=== PATIENT | male | born 1965 | race Caucasian/White ===

== ENCOUNTER 2016-07-22 15:31 | Observation (INO) | payer OTHER ==
[~2016-07-22] VITALS: Ht 170.2 cm; Wt 151.0 kg
[2016-07-22 15:35] VITALS: BP 125/59; PULSE 73; RESP 20; O2SAT 95
[2016-07-22 15:57] VITALS: BP 125/59; PULSE 73; RESP 20; TEMP 98.9; O2SAT 95
[2016-07-22] MEDS ORDERED: SODIUM CHLORIDE 0.9% FLUSH 10 ML FLUSH IVF PRN (16:00)
--- NOTE | 2016-07-22 16:10 | PD ---
HPI Chief Complaint: Respiratory Distress Time Seen by Provider: 15:51 Travel History International Travel<30 days: No Contact w/Intl Traveler<30days: No Traveled to known affect area: No History of Present Illness HPI The patient is a 50-year-old male who presents to the emergency department via EMS for multiple complaints. The patient states he is currently traveling from [place], [place], to [place] to go to the [employer]. The patient states when he got out of the car he felt like his legs were "rubbery ", he had some numbness and tingling to the left upper extremity that affected the whole hand, now only affects the fifth digit, and had mild shortness of breath. The patient does note a history of 2 previous CVAs and previous stent placement secondary to CAD. Patient also has a history of COPD and CHF. The patient states his breathing has significantly improved, the numbness and tingling to the left upper extremity has resolved, and his legs are feeling slightly stronger. The patient is currently on aspirin as well as Effient. The patient denies any known history of DVT or pulmonary embolism. The patient does have a history of 2 previous strokes with no subsequent deficits. He states one stroke was on the left thigh, he was partially blind for about 15 months and then it resolved. Patient states his symptoms today started after traveling, noted both legs felt weak. He denies any current chest pain, states his shortness of breath has resolved, denies any nausea, vomiting, diarrhea, or abdominal pain. PFSH Past Medical History Narrative Medical Diabetes, CVA, CAD, [place], hypertension, COPD, CHF Past Surgical History Narrative Surgical Angioplasty with stent placement, stent in right iliac arteries Social History Tobacco Use: No Allergies-Medications (Allergen,Severity, Reaction): Coded Allergies: No Known Allergies (Unverified , 07/22/16) Reported Meds & Prescriptions Reported Meds & Active Scripts Active Reported Effient (Prasugrel) 10 Mg Tab 10 Mg PO DAILY Glimepiride 4 Mg Tab 4 Mg PO BIDAC B12 (Cyanocobalamin) 1,000 Mcg Tab 5,000 Mcg PO DAILY Furosemide 20 Mg Tab 20 Mg PO BID Hydralazine (Hydralazine HCl) 10 Mg Tab 10 Mg PO BID Take with a meal Carvedilol 25 Mg Tab 25 Mg PO BID Gabapentin 100 Mg Cap 200 Mg PO BID Zocor (Simvastatin) 20 Mg Tab 20 Mg PO HS Folate (Folic Acid) 1 Mg Tab 1 Mg PO DAILY Loratadine 10 Mg Tab 10 Mg PO DAILY Lansoprazole 15 Mg Capdr 15 Mg PO DAILY D3 (Cholecalciferol) 2,000 Unit Tab 2,000 Tab PO DAILY Aspirin 81 Mg Chew 81 Mg CHEW DAILY Fish Oil ([place]-3 Fatty Acids) 1,000 Mg Cap 2,000 Mg PO DAILY Multivitamin Men (Multiple Vitamins W/ Minerals) 1 Tab Tab 1 Tab PO DAILY Ventolin Hfa 18 GM Inh (Albuterol Sulfate) 90 Mcg/Act Aer 1 Puff INH Q4H PRN Anoro Ellipta Inh (Umeclidinium/Vilanterol) 62.5-25 Mcg/Act Aero 1 Puff INH DAILY Levemir Flextouch Pen Inj (Insulin Detemir) 300 unit/3 ML Pen 50 Units SQ HS Humalog Mix 75-25 Inj (Insulin Lispro Protam/Lispro Human) 1,000 Unit/10 Ml Susp 26 Units SQ AC DINNER Humalog Mix 75-25 Inj (Insulin Lispro Protam/Lispro Human) 1,000 Unit/10 Ml Susp 40 Units SQ AC BREAKFAST Ligwjnhqwh-Vdkwnthuifupo-Omiroyax-Codeine 26-729-87-30 Mg Cap 1-2 Cap PO Q4H PRN Do not exceed 6 capsules/day. Review of Systems Except as stated in HPI: all other systems reviewed are Neg General / Constitutional: No: Fever Eyes: No: Blurred Vision HENT: No: Headaches, Lightheadedness Cardiovascular: No: Chest Pain or Discomfort Respiratory: Positive: Shortness of Breath (has shortness of breath earlier which has resolved) Gastrointestinal: No: Nausea, Vomiting, Abdominal Pain Genitourinary: No: Dysuria Musculoskeletal: Positive: Weakness Neurologic: Positive: Paresthesia, Other (history of lower extremity neuropathy ) Physical Exam Narrative GENERAL: Awake, alert, pleasant 50-year-old male who appears his stated age and is in no acute respiratory distress. SKIN: Focused skin assessment warm/dry. HEAD: Atraumatic. Normocephalic. EYES: Pupils equal and round. No scleral icterus. No injection or drainage. ENT: No nasal bleeding or discharge. Mucous membranes pink and moist. NECK: Trachea midline. No JVD. CARDIOVASCULAR: Regular rate and rhythm. No murmur appreciated. RESPIRATORY: No accessory muscle use. Clear to auscultation. Breath sounds equal bilaterally. GASTROINTESTINAL: Abdomen soft, obese, no rebound tenderness. MUSCULOSKELETAL: Chronic venous stasis changes lower extremities bilateral. Positive distal pulses. Strength of flexion extension the elbows is 5 out of 5 , flexion extension of the wrist is 5 out of 5, intrinsic and muscles are 5 out of 5 bilateral. Positive radial pulses. NEUROLOGICAL: Awake and alert. No obvious cranial nerve deficits. Motor grossly within normal limits. Normal speech. No drift of the upper or lower extremity. Sensation is symmetric on the arms, legs, and face bilaterally. NIHSS 0. PSYCHIATRIC: Appropriate mood and affect; insight and judgment normal. Data Data Last Documented VS Vital Signs Date Time Temp Pulse Resp B/P Pulse Ox O2 Delivery O2 Flow Rate FiO2 07/23/16 00:10 20 96 Nasal Cannula 2 07/22/16 21:59 74 175/73 07/22/16 15:57 98.9 Orders Complete Blood Count With Diff (07/22/16 15:51) Comprehensive Metabolic Panel (07/22/16 15:51) Act Partial Throm Time (Ptt) (07/22/16 15:51) Prothrombin Time / Inr (Pt) (07/22/16 15:51) Magnesium (Mg) (07/22/16 15:51) Ckmb (Isoenzyme) Profile (07/22/16 15:51) Troponin I (07/22/16 15:51) Iv Access Insert/Monitor (07/22/16 15:51) Electrocardiogram (07/22/16 15:51) Ecg Monitoring (07/22/16 15:51) Oximetry (07/22/16 15:51) Oxygen Administration (07/22/16 15:51) Chest, Single Ap (07/22/16 15:51) Sodium Chloride 0.9% Flush (Ns Flush) (07/22/16 16:00) Ct Brain W/O Iv Contrast(Rout) (07/22/16 ) Mri Brain W/O Contrast (07/22/16 ) CKMB (07/22/16 16:25) CKMB% (07/22/16 16:25) Lorazepam Inj (Ativan Inj) (07/22/16 20:15) Admit Order (Ed Use Only) (07/23/16 00:14) Consult Neurology (07/23/16 ) Labs Laboratory Tests Test 07/22/16 16:25 White Blood Count 9.7 TH/MM3 Red Blood Count 4.62 MIL/MM3 Hemoglobin 12.9 GM/DL Hematocrit 38.7 % Mean Corpuscular Volume 83.8 FL Mean Corpuscular Hemoglobin 28.0 PG Mean Corpuscular Hemoglobin 33.4 % Concent Red Cell Distribution Width 14.2 % Platelet Count 210 TH/MM3 Mean Platelet Volume 9.6 FL Neutrophils (%) (Auto) 67.2 % Lymphocytes (%) (Auto) 21.5 % Monocytes (%) (Auto) 9.0 % Eosinophils (%) (Auto) 1.5 % Basophils (%) (Auto) 0.8 % Neutrophils # (Auto) 6.5 TH/MM3 Lymphocytes # (Auto) 2.1 TH/MM3 Monocytes # (Auto) 0.9 TH/MM3 Eosinophils # (Auto) 0.1 TH/MM3 Basophils # (Auto) 0.1 TH/MM3 CBC Comment DIFF FINAL Differential Comment Prothrombin Time 9.9 SEC Prothromb Time International 0.9 RATIO Ratio Activated Partial 24.3 SEC Thromboplast Time Sodium Level 134 MEQ/L Potassium Level 5.1 MEQ/L Chloride Level 99 MEQ/L Carbon Dioxide Level 24.3 MEQ/L Anion Gap 11 MEQ/L Blood Urea Nitrogen 38 MG/DL Creatinine 2.28 MG/DL Estimat Glomerular Filtration 31 ML/MIN Rate Random Glucose 214 MG/DL Calcium Level 9.0 MG/DL Magnesium Level 2.2 MG/DL Total Bilirubin 0.4 MG/DL Aspartate Amino Transf 30 U/L (AST/SGOT) Alanine Aminotransferase 38 U/L (ALT/SGPT) Alkaline Phosphatase 84 U/L Total Creatine Kinase 172 U/L Creatine Kinase MB 5.5 NG/ML Troponin I LESS THAN 0.02 NG/ML Total Protein 7.2 GM/DL Albumin 3.4 GM/DL [facility] Medical Decision Making Medical Screen Exam Complete: Yes Emergency Medical Condition: Yes Medical Record Reviewed: Yes Interpretation(s) EKG reveals normal sinus rhythm with a rate of 75. Q wave noted in lead 3. Last Impressions Head CT 07/22/16 0000 Signed Impressions: Service Date/Time: Friday, July 22, 2016 17:15 - CONCLUSION: Focal small low attenuation area in the white matter of the right parietal lobe. The finding is nonspecific and could represent a small focus of edema or possible remote injury. Julio Cesar Hunter MD Laboratory Tests Test 07/22/16 16:25 White Blood Count 9.7 TH/MM3 Red Blood Count 4.62 MIL/MM3 Hemoglobin 12.9 GM/DL Hematocrit 38.7 % Mean Corpuscular Volume 83.8 FL Mean Corpuscular Hemoglobin 28.0 PG Mean Corpuscular Hemoglobin 33.4 % Concent Red Cell Distribution Width 14.2 % Platelet Count 210 TH/MM3 Mean Platelet Volume 9.6 FL Neutrophils (%) (Auto) 67.2 % Lymphocytes (%) (Auto) 21.5 % Monocytes (%) (Auto) 9.0 % Eosinophils (%) (Auto) 1.5 % Basophils (%) (Auto) 0.8 % Neutrophils # (Auto) 6.5 TH/MM3 Lymphocytes # (Auto) 2.1 TH/MM3 Monocytes # (Auto) 0.9 TH/MM3 Eosinophils # (Auto) 0.1 TH/MM3 Basophils # (Auto) 0.1 TH/MM3 CBC Comment DIFF FINAL Differential Comment Prothrombin Time 9.9 SEC Prothromb Time International 0.9 RATIO Ratio Activated Partial 24.3 SEC Thromboplast Time Sodium Level 134 MEQ/L Potassium Level 5.1 MEQ/L Chloride Level 99 MEQ/L Carbon Dioxide Level 24.3 MEQ/L Anion Gap 11 MEQ/L Blood Urea Nitrogen 38 MG/DL Creatinine 2.28 MG/DL Estimat Glomerular Filtration 31 ML/MIN Rate Random Glucose 214 MG/DL Calcium Level 9.0 MG/DL Magnesium Level 2.2 MG/DL Total Bilirubin 0.4 MG/DL Aspartate Amino Transf 30 U/L (AST/SGOT) Alanine Aminotransferase 38 U/L (ALT/SGPT) Alkaline Phosphatase 84 U/L Total Creatine Kinase 172 U/L Creatine Kinase MB 5.5 NG/ML Troponin I LESS THAN 0.02 NG/ML Total Protein 7.2 GM/DL Albumin 3.4 GM/DL Differential Diagnosis Differential diagnosis includes CVA, TIA, neuropathy, CHF exacerbation, COPD exacerbation, deconditioning, cardiomyopathy, hyponatremia, electrolyte abnormality. Narrative Course IV was established, labs are drawn and sent, and the patient was placed on cardiac telemetry monitoring and continuous pulse oximetry monitoring. EKG was ordered and interpreted. Chest x-ray was obtained. CT the brain was obtained. The patient has no acute focal deficits on examination, I do not believe this is an acute CVA/TIA. However, the patient's history, CT of the brain was obtained. CT of the brain reveals questionable old injury versus area of edema in the right parietal region, therefore, MRI was ordered to rule out CVA. No obvious hemorrhage, therefore, patient was administered aspirin. Patient's creatinine is mildly elevated at 2.28, no baseline or previous records. The patient was signed out to the oncoming physician at 7 PM with MRI results pending. If MRI is positive, patient will need admission, if negative, patient be discharged home. Diagnosis Primary Impression: Generalized weakness Additional Impression: Demyelinating changes in brain Condition: Stable Ildefonso Lara MD Jul 22, 2016 16:10
--- NOTE | 2016-07-22 16:35 | RADRPT ---
EXAM DATE/TIME: 07/22/2016 16:07 [facility] COMPARISON: No previous studies available for comparison. INDICATIONS : Shortness of breath and left arm numbness. MEDICAL HISTORY : Chronic obstructive pulmonary disease. Congestive heart failure. Diabetes mellitus type II. Hyper tension. SURGICAL HISTORY : Cardiac stents. ENCOUNTER: Initial ACUITY: 3 days PAIN SCORE: 0/10 LOCATION: Chest FINDINGS: Lungs are underaerated with minimal bibasilar parenchymal changes worse on the right than the left. H eart and pulmonary vascularity are normal. CONCLUSION: Minimal parenchymal changes right base. Satish Jesus MD FACR on July 22, 2016 at 16:29 Board Certified Radiologist. This report was verified electronically.
[2016-07-22 16:58] LABS: AUTOMATED NEUTROPHIL # 6.5 TH/MM3 (1.8-7.7); BASOPHIL # 0.1 TH/MM3 (0-0.2); BASOPHIL % 0.8 % (0.0-2.0); EOSINOPHIL # 0.1 TH/MM3 (0-0.4); EOSINOPHIL % 1.5 % (0.0-4.0); HEMATOCRIT 38.7 % (39.0-51.0); HEMO FLAGS DIFF FINAL; LYMPH % 21.5 % (9.0-44.0); LYMPHOCYTE # 2.1 TH/MM3 (1.0-4.8); MEAN CELL VOLUME 83.8 FL (80.0-100.0); MEAN CORPUSCULAR HGB CONC 33.4 % (32.0-36.0); NEUT % 67.2 % (16.0-70.0); PLATELET COUNT 210 TH/MM3 (150-450); RED BLOOD COUNT 4.62 MIL/MM3 (4.50-5.90); RED CELL DISTRIBUTION WIDTH 14.2 % (11.6-17.2); WHITE BLOOD COUNT 9.7 TH/MM3 (4.0-11.0)
[2016-07-22 17:13] LABS: APTT (PATIENT) 24.3 SEC (24.3-30.1); INTERNATIONAL NORMALIZED RATIO 0.9 RATIO; PROTHROMBIN TIME - PATIENT 9.9 SEC (9.8-11.6)
--- NOTE | 2016-07-22 17:22 | RADRPT ---
EXAM DATE/TIME: 07/22/2016 17:15 [facility] COMPARISON: No previous studies available for comparison. INDICATIONS : Generalized weakness. RADIATION DOSE: 44.46 CTDIvol (mGy) MEDICAL HISTORY : Cardiovascular disease. Diabetes mellitus type 2. SURGICAL HISTORY : None. ENCOUNTER: Initial ACUITY: 1 day PAIN SCALE: 0/10 LOCATION: cranial TECHNIQUE: Multiple contiguous axial images were obtained of the head. Using automated exposure control and adj ustment of the mA and/or kV according to patient size, radiation dose was kept as low as reasonably a chievable to obtain optimal diagnostic quality images. FINDINGS: CEREBRUM: The ventricles are normal for age. No evidence of midline shift, hemorrhage or acute infarction. On image #20 there is a 1 cm focal area of decreased attenuation in the deep white matter of the right parietal lobe. No extra-axial fluid collections are seen. POSTERIOR FOSSA: The cerebellum and brainstem are intact. The 4th ventricle is midline. The cerebellopontine angle i s unremarkable. EXTRACRANIAL: The visualized portion of the orbits is intact. SKULL: The calvaria is intact. No evidence of skull fracture. CONCLUSION: Focal small low attenuation area in the white matter of the right parietal lobe. The finding is nonspecific and could represent a small focus of edema or possible remote injury. Julio Cesar Hunter MD on July 22, 2016 at 17:18 Board Certified Radiologist. This report was verified electronically.
[2016-07-22 17:52] LABS: ALKALINE PHOSPHATASE 84 U/L (45-117); ALT (GPT) 38 U/L (12-78); ANION GAP 11 MEQ/L (5-15); AST (GOT) 30 U/L (15-37); BICARBONATE 24.3 MEQ/L (21.0-32.0); BLOOD UREA NITROGEN 38 MG/DL (7-18); CHLORIDE 99 MEQ/L (98-107); CREATINE KINASE 172 U/L (39-308); GLOMERULAR FILTRATION RATE 31 ML/MIN (>89); MAGNESIUM 2.2 MG/DL (1.5-2.5); POTASSIUM 5.1 MEQ/L (3.5-5.1); SODIUM (NA) 134 MEQ/L (136-145); TOTAL BILIRUBIN ADULT 0.4 MG/DL (0.2-1.0)
[2016-07-22 18:00] VITALS: BP 127/64; PULSE 74; RESP 20; O2SAT 98
[2016-07-22 18:05] LABS: CKMB 5.5 NG/ML (0.5-3.6)
[2016-07-22 19:00] VITALS: BP 128/76; PULSE 72; RESP 20; O2SAT 97
--- NOTE | 2016-07-22 20:07 | PD ---
Physical Exam Narrative Received sign out from previous team to follow up on MRI brain. I was informed by nurse that pt was brought by from MRI because he was claustrophobic. Pt states that he gets like that in tight spaces and needed medication so ativan 1mg IV given. MRI brain showed multiple small areas of signal abnormality likely representing demyelination. Discussed results with Dr. Jean Baptiste and he recommends inpatient workup and consult neurology and he will see him tomorrow. Discussed with Dr. Hutchins and accepted to her service. Data Data Last Documented VS Vital Signs Date Time Temp Pulse Resp B/P Pulse Ox O2 Delivery O2 Flow Rate FiO2 07/23/16 00:10 20 96 Nasal Cannula 2 07/22/16 21:59 74 175/73 07/22/16 15:57 98.9 Orders Complete Blood Count With Diff (07/22/16 15:51) Comprehensive Metabolic Panel (07/22/16 15:51) Act Partial Throm Time (Ptt) (07/22/16 15:51) Prothrombin Time / Inr (Pt) (07/22/16 15:51) Magnesium (Mg) (07/22/16 15:51) Ckmb (Isoenzyme) Profile (07/22/16 15:51) Troponin I (07/22/16 15:51) Iv Access Insert/Monitor (07/22/16 15:51) Electrocardiogram (07/22/16 15:51) Ecg Monitoring (07/22/16 15:51) Oximetry (07/22/16 15:51) Oxygen Administration (07/22/16 15:51) Chest, Single Ap (07/22/16 15:51) Sodium Chloride 0.9% Flush (Ns Flush) (07/22/16 16:00) Ct Brain W/O Iv Contrast(Rout) (07/22/16 ) Mri Brain W/O Contrast (07/22/16 ) CKMB (07/22/16 16:25) CKMB% (07/22/16 16:25) Lorazepam Inj (Ativan Inj) (07/22/16 20:15) Admit Order (Ed Use Only) (07/23/16 00:14) Consult Neurology (07/23/16 ) Labs Laboratory Tests Test 07/22/16 16:25 White Blood Count 9.7 TH/MM3 Red Blood Count 4.62 MIL/MM3 Hemoglobin 12.9 GM/DL Hematocrit 38.7 % Mean Corpuscular Volume 83.8 FL Mean Corpuscular Hemoglobin 28.0 PG Mean Corpuscular Hemoglobin 33.4 % Concent Red Cell Distribution Width 14.2 % Platelet Count 210 TH/MM3 Mean Platelet Volume 9.6 FL Neutrophils (%) (Auto) 67.2 % Lymphocytes (%) (Auto) 21.5 % Monocytes (%) (Auto) 9.0 % Eosinophils (%) (Auto) 1.5 % Basophils (%) (Auto) 0.8 % Neutrophils # (Auto) 6.5 TH/MM3 Lymphocytes # (Auto) 2.1 TH/MM3 Monocytes # (Auto) 0.9 TH/MM3 Eosinophils # (Auto) 0.1 TH/MM3 Basophils # (Auto) 0.1 TH/MM3 CBC Comment DIFF FINAL Differential Comment Prothrombin Time 9.9 SEC Prothromb Time International 0.9 RATIO Ratio Activated Partial 24.3 SEC Thromboplast Time Sodium Level 134 MEQ/L Potassium Level 5.1 MEQ/L Chloride Level 99 MEQ/L Carbon Dioxide Level 24.3 MEQ/L Anion Gap 11 MEQ/L Blood Urea Nitrogen 38 MG/DL Creatinine 2.28 MG/DL Estimat Glomerular Filtration 31 ML/MIN Rate Random Glucose 214 MG/DL Calcium Level 9.0 MG/DL Magnesium Level 2.2 MG/DL Total Bilirubin 0.4 MG/DL Aspartate Amino Transf 30 U/L (AST/SGOT) Alanine Aminotransferase 38 U/L (ALT/SGPT) Alkaline Phosphatase 84 U/L Total Creatine Kinase 172 U/L Creatine Kinase MB 5.5 NG/ML Troponin I LESS THAN 0.02 NG/ML Total Protein 7.2 GM/DL Albumin 3.4 GM/DL MDM Supervised Visit with [place]: No Diagnosis Primary Impression: Demyelinating changes in brain Admitting Information Admitting Physician Requests: Observation Condition: Stable Fadumo Lpoez Jul 22, 2016 20:07
[2016-07-22] MEDS ORDERED: LORazepam 2 MG/ML VIAL IV PUSH ONE (20:15)
[2016-07-22 21:59] VITALS: BP 175/73; PULSE 74; RESP 18; O2SAT 98
--- NOTE | 2016-07-22 22:22 | RADRPT ---
EXAM DATE/TIME: 07/22/2016 20:48 [facility] COMPARISON: CT BRAIN W/O CONTRAST, July 22, 2016, 17:15. INDICATIONS : CVA. MEDICAL HISTORY : Hypertension. Hypercholesterolemia. Chronic obstructive pulmonary disease. Diabetes. SURGICAL HISTORY : Laser eye surgery. ENCOUNTER: Subsequent ACUITY: 1 day PAIN SCORE: 3/10 LOCATION: Cranial TECHNIQUE: Multiplanar, multisequence MRI of the brain was performed without contrast. FINDINGS: CEREBRUM: The ventricles are normal for age. No evidence of midline shift, mass lesion, hemorrha ge or acute infarction. No extraaxial fluid collections are seen. The pituitary gland and suprasell ar cistern are normal in configuration. WHITE MATTER: There are a few scattered punctate areas of signal abnormality in the cerebral white matter. There is a prominent area of signal abnormality seen in the right paraventricular whit e matter at the medial frontoparietal region measuring 1.3 x 0.9 cm. This corresponds to the area of low density seen on the CT examination. POSTERIOR FOSSA: The cerebellum and brainstem are intact. The 4th ventricle is midline. The cere bellopontine angle is unremarkable. The cerebellar tonsils are normal in position. DIFFUSION IMAGING: No focal areas of restricted diffusion are seen. No evidence of acute infarct ion. EXTRACRANIAL: The visualized portions of the orbits and paranasal sinuses are unremarkable. CONCLUSION: Multiple small areas of signal abnormality in the superior white matter likely repres enting focal areas of demyelination. There is a larger area seen in the medial right frontoparietal region. This could represent either a larger area of demyelination or an old lacunar infarct. The c ause of the small areas of demyelination are not known. Small vessel ischemic change versus underlyin g demyelinating conditions could have this appearance. Arjun Castellon MD on July 22, 2016 at 22:10 Board Certified Radiologist. This report was verified electronically.
[2016-07-23] VITALS (8 sets, daily range): BP systolic 156–187; BP diastolic 65–89; PULSE 70–74; RESP 20; TEMP 97.6–98.2; O2SAT 95–100
[2016-07-23] MEDS ORDERED: SODIUM CHLOR 0.9% 1000 ML INJ 1,000 ML IV SCH (00:24)
[2016-07-23] MEDS ORDERED: ONDANSETRON HCL 4 MG/2 ML VIAL IVP PRN (00:30)
[2016-07-23] MEDS ORDERED: SODIUM CHLORIDE 0.9% FLUSH 10 ML FLUSH IV FLUSH PRN (00:30)
[2016-07-23] MEDS ORDERED: MORPHINE SULFATE 4 MG/ML INJ IV PRN (00:30)
[2016-07-23] MEDS ORDERED: ACETAMINOPHEN 325 MG TAB PO PRN (00:30)
[2016-07-23] MEDS ORDERED: BISACODYL 10 MG SUPP RECTAL PRN (00:30)
[2016-07-23] MEDS ORDERED: ACETAMINOPHEN/HYDROcodone 325 MG/5 MG TAB PO PRN (00:30)
--- NOTE | 2016-07-23 00:53 | HHI.HP ---
HPI Service [facility] Primary [facility] Physician Non-Staff Admission Diagnosis Possible TIA Diagnoses: (1) Generalized weakness Diagnosis: Principal (2) Abnormal head CT Diagnosis: Principal (3) Renal insufficiency Diagnosis: Principal (4) HTN (hypertension) Diagnosis: Principal (5) DM (diabetes mellitus) Diagnosis: Principal (6) CHF (congestive heart failure) Diagnosis: Principal (7) COPD (chronic obstructive pulmonary disease) Diagnosis: Principal Travel History International Travel<30 Days: No Contact w/Intl Traveler <30 Da: No Traveled to Known Affected Are: No History of Present Illness This is a 50-year-old male with a PMH of CAD s/p Stent on Effient, h/o TIA x2, HTN, DM, COPD, CKD (Stage unknown), CHF (EF unknown) and Peripheral Neuropathy who was brought to the ER by EMS secondary to complaints of generalized weakness and LUE numbness. Pt states he was visiting from [place] with family, while at a restaurant states he had acute neck pain w/ LUE numbness/tingling and states had "jelly legs" where he was unable to stand up. States normally ambulates w/ cane or walker and uses wheelchair for long distances. Had c/o SOB at the time of symptoms, used his inhaler w/ relief. On arrival, BP 125/59 , HR 73, O2 sat 95% on 2LC. CBC essentially unremarkable. Creatinine 2.28, no previous labs for comparison. BS 214. Troponin negative. CXR with minimal parenchymal changes right base. CT Head with focal small low-attenuation area white matter of right parietal lobe, nonspecific could represent small focus of edema or possible remote injury. MRI Brain with multiple small areas of signal abnormality in the superior white matter likely representing areas of demyelination, larger area in medial right frontal parietal region possibly demyelination or old lacunar infarct. Dr. Jean Baptiste with Neurology consulted by ER physician, recommended admission for possible TIA and further workup. Pt reports he does follow w/ his [employer] in [place], last Echo <1yr ago. Review of Systems Except as stated in HPI: all other systems reviewed are Neg ROS: 14 point review of systems otherwise negative. Past Family Social History Past Medical History PMH: CAD s/p Stent on Effient, h/o TIA x2, HTN, DM, COPD, CKD (Stage unknown), CHF (EF unknown) and Peripheral Neuropathy Past Surgical History PAST SURGICAL HISTORY: Cardiac Stent Allergies: Coded Allergies: No Known Allergies (Unverified , 07/22/16) Family History PAST FAMILY HISTORY: Reviewed. No h/o DM or CAD Social History PAST SOCIAL HISTORY: Negative for alcohol, tobacco or drugs. Physical Exam Vital Signs Vital Signs Date Time Temp Pulse Resp B/P Pulse Ox O2 Delivery O2 Flow Rate FiO2 07/23/16 00:10 20 96 Nasal Cannula 2 07/22/16 21:59 74 18 175/73 98 Nasal Cannula 2 07/22/16 19:00 72 20 128/76 97 Nasal Cannula 2 07/22/16 18:00 74 20 127/64 98 Nasal Cannula 2 07/22/16 16:04 95 Nasal Cannula 2 07/22/16 16:04 20 95 Nasal Cannula 2 07/22/16 15:57 98.9 73 20 125/59 95 07/22/16 15:35 73 20 125/59 95 Nasal Cannula 2 Physical Exam PE: GENERAL: Very pleasant middle-aged white male in no acute distress, appears older than stated age. and son at bedside. HEENT: PERRLA, EOMI. No scleral icterus or conjunctival pallor. No lid lag or facial droop. CARDIOVASCULAR: Regular rate and rhythm. No obvious murmurs to auscultation. No chest tenderness to palpation. RESPIRATORY: No obvious rhonchi or wheezing. Clear to auscultation. Breath sounds equal bilaterally. GASTROINTESTINAL: Abdomen soft, non-tender, nondistended. BS normal. MUSCULOSKELETAL: Extremities without clubbing, cyanosis, or edema. No obvious deformities. NEUROLOGICAL: Awake, alert and oriented x4. No focal neurologic deficits. Moving both upper and lower extremities spontaneously. Laboratory Laboratory Tests Test 07/22/16 16:25 White Blood Count 9.7 Red Blood Count 4.62 Hemoglobin 12.9 Hematocrit 38.7 Mean Corpuscular Volume 83.8 Mean Corpuscular Hemoglobin 28.0 Mean Corpuscular Hemoglobin 33.4 Concent Red Cell Distribution Width 14.2 Platelet Count 210 Mean Platelet Volume 9.6 Neutrophils (%) (Auto) 67.2 Lymphocytes (%) (Auto) 21.5 Monocytes (%) (Auto) 9.0 Eosinophils (%) (Auto) 1.5 Basophils (%) (Auto) 0.8 Neutrophils # (Auto) 6.5 Lymphocytes # (Auto) 2.1 Monocytes # (Auto) 0.9 Eosinophils # (Auto) 0.1 Basophils # (Auto) 0.1 CBC Comment DIFF FINAL Differential Comment Prothrombin Time 9.9 Prothromb Time International 0.9 Ratio Activated Partial 24.3 Thromboplast Time Sodium Level 134 Potassium Level 5.1 Chloride Level 99 Carbon Dioxide Level 24.3 Anion Gap 11 Blood Urea Nitrogen 38 Creatinine 2.28 Estimat Glomerular Filtration 31 Rate Random Glucose 214 Calcium Level 9.0 Magnesium Level 2.2 Total Bilirubin 0.4 Aspartate Amino Transf 30 (AST/SGOT) Alanine Aminotransferase 38 (ALT/SGPT) Alkaline Phosphatase 84 Total Creatine Kinase 172 Creatine Kinase MB 5.5 Troponin I LESS THAN 0.02 Total Protein 7.2 Albumin 3.4 Result Diagram: 07/22/16 1625 07/22/16 162 Assessment and Plan Problem List: (1) Generalized weakness ICD Code: R53.1 Status: Acute (2) Abnormal head CT ICD Code: R93.0 Status: Acute (3) HTN (hypertension) ICD Code: I10 Status: Acute (4) CHF (congestive heart failure) ICD Code: I50.9 Status: Acute (5) COPD (chronic obstructive pulmonary disease) ICD Code: J44.9 Status: Acute (6) Renal insufficiency ICD Code: N28.9 Status: Acute (7) DM (diabetes mellitus) ICD Code: E11.9 Status: Acute Assessment and Plan A/P: 1. Generalized Weakness: acute onset of bilateral lower extremity weakness, "jelly legs", now at baseline. Normally ambulates w/ assistance of cane/walker , occasionally wheelchair. No persistent complaints. PT for erik/tx as needed. 2. Abnormal CT Head: acute onset of neck pain/LUE numbness/tingling. CT Head w/ focal small low attenuation area of right parietal lobe, nonspecific, possibly edema or remote injury, images reviewed by me. MRI Brain w/ multiple small areas of signal abnormality inside. White matter likely representing areas of demyelination, larger area in medial right frontoparietal region either demyelination or old lacunar infarct, images reviewed by me. Dr. Jean Baptiste consulted by ER physician, recommended admission for possible TIA and further workup. Resume home ASA, Statin. Check Lipid Profile, Hgb A1c. Hold BP meds for permissive HTN. 3. Renal Insufficiency: Chronic. Baseline creatinine unknown but pt reports "early renal failure". Creatinine 2.24, no previous labs for comparison. Check U/a. Repeat labs in am. 4. DM: Sliding scale w/ Accu-Cheks. Check Hgb A1c. Resume home medications. 5. COPD: Chronic Respiratory Failure. Stable. Resume home medications. CXR w/ no acute findings, images reviewed by me. 6. CHF: EF unknown. Follows w/ [employer] in [place], reports last Echo <1yr ago, cannot recall EF. Resume home Lasix, caution w/ renal insufficiency. 7. HTN: Hold BP meds for now to allow for permissive HTN in light of possible TIA. Monitor BP, currently controlled. 8. DVT Prophylaxis: SCD/Teds, resume home Effient. 9. Social work for dc planning as needed. 10. Case discussed w/ ER physician at length. Mayte Hutchins MD Jul 23, 2016 00:53
[2016-07-23] MEDS ORDERED: DEXTROSE 50% IN WATER 50 ML VIAL(D50) IV PUSH PRN (01:00)
[2016-07-23] MEDS ORDERED: GLUCAGON 1 MG/ML VIAL OTHER PRN (01:00)
[2016-07-23] MEDS ORDERED: CARV25TA PO (01:29)
[2016-07-23] MEDS ORDERED: UMEC1AER INH (01:29)
[2016-07-23] MEDS ORDERED: LANS15CA PO (01:29)
[2016-07-23] MEDS ORDERED: FURO20TA PO (01:29)
[2016-07-23] MEDS ORDERED: INSU1INJ5 SQ (01:29)
[2016-07-23] MEDS ORDERED: INSU100V SQ ×2 (01:29)
[2016-07-23] MEDS ORDERED: GLIM4TAB PO (01:29)
[2016-07-23] MEDS ORDERED: ASPI81CH CHEW (01:29)
[2016-07-23] MEDS ORDERED: CYAN1TAB24 PO (01:29)
[2016-07-23] MEDS ORDERED: ZOCO20TA PO (01:29)
[2016-07-23] MEDS ORDERED: FISH1000 PO (01:29)
[2016-07-23] MEDS ORDERED: GABA100C4 PO (01:29)
[2016-07-23] MEDS ORDERED: BUTA1CAP7 PO (01:29)
[2016-07-23] MEDS ORDERED: LORA10TA PO (01:29)
[2016-07-23] MEDS ORDERED: VENTAER INH (01:29)
[2016-07-23] MEDS ORDERED: PRAS10TA PO (01:29)
[2016-07-23] MEDS ORDERED: MULT1TAB85 PO (01:29)
[2016-07-23] MEDS ORDERED: FOLI1TAB4 PO (01:29)
[2016-07-23] MEDS ORDERED: HYDR10TA23 PO (01:29)
[2016-07-23] MEDS ORDERED: D32000TA PO (01:29)
[2016-07-23] MEDS ORDERED: ALBUTEROL SULFATE 90 MCG/ACT HFA 18 GM INHALER INH PRN (01:30)
[2016-07-23] MEDS ORDERED: INSULIN ASPART SUPPLEMENTAL SCALE SQ SCH (07:00)
[2016-07-23] MEDS ORDERED: PRASUGREL 10 MG TAB PO SCH (09:00)
[2016-07-23] MEDS ORDERED: ASPIRIN EC 81 MG TABEC PO SCH (09:00)
[2016-07-23] MEDS ORDERED: PRAVASTATIN SOD 40 MG TAB PO SCH (09:00)
[2016-07-23] MEDS ORDERED: SODIUM CHLORIDE 0.9% FLUSH 10 ML FLUSH IV FLUSH SCH (09:00)
[2016-07-23 09:47] LABS: BACTERIA, URINE RARE /hpf; BLOOD, URINE NEG (NEG); COMMENT (UR) CULT NOT INDICATED; CULTURE IF INDICATED CULT NOT INDICATED; GLUCOSE,URINE 300 mg/dL (NEG); HYALINE CAST, URINE 25 /lpf (RARE); KETONE, URINE NEG (NEG); MUCUS URINE FEW /lpf (OCC); NITRITE,URINE NEG (NEG); SQUAMOUS EPITHELIAL CELL URINE <1 /hpf (0-5); URINE COLOR YELLOW (YELLW/STRAW)
[2016-07-23 11:50] LABS: AUTOMATED NEUTROPHIL # 4.1 TH/MM3 (1.8-7.7); BASOPHIL % 0.6 % (0.0-2.0); EOSINOPHIL # 0.1 TH/MM3 (0-0.4); EOSINOPHIL % 1.5 % (0.0-4.0); HEMATOCRIT 36.8 % (39.0-51.0); HEMO FLAGS DIFF FINAL; LYMPH % 25.3 % (9.0-44.0); LYMPHOCYTE # 1.6 TH/MM3 (1.0-4.8); MEAN CELL VOLUME 85.1 FL (80.0-100.0); MEAN CORPUSCULAR HEMOGLOBIN 27.7 PG (27.0-34.0); MEAN CORPUSCULAR HGB CONC 32.6 % (32.0-36.0); MONO % 9.1 % (0.0-8.0); NEUT % 63.5 % (16.0-70.0); PLATELET COUNT 159 TH/MM3 (150-450); RED BLOOD COUNT 4.32 MIL/MM3 (4.50-5.90); RED CELL DISTRIBUTION WIDTH 14.2 % (11.6-17.2); WHITE BLOOD COUNT 6.4 TH/MM3 (4.0-11.0)
[2016-07-23 12:11] LABS: ANION GAP 9 MEQ/L (5-15); AST (GOT) 18 U/L (15-37); BICARBONATE 23.6 MEQ/L (21.0-32.0); BLOOD UREA NITROGEN 35 MG/DL (7-18); CHLORIDE 103 MEQ/L (98-107); GLOMERULAR FILTRATION RATE 50 ML/MIN (>89); POTASSIUM 4.7 MEQ/L (3.5-5.1); SODIUM (NA) 136 MEQ/L (136-145)
[2016-07-23 12:16] LABS: ALKALINE PHOSPHATASE 62 U/L (45-117); ALT (GPT) 32 U/L (12-78); HDL CHOLESTEROL 37.9 MG/DL (40.0-60.0); LDL CHOLESTEROL 82 MG/DL (0-99); TOTAL BILIRUBIN ADULT 0.4 MG/DL (0.2-1.0)
--- NOTE | 2016-07-23 17:11 | HHI.PR ---
Addendum Remarks At 1200hrs RN reports the patient wants to leave AMA. He is AAOx4. He does not want to wait for neurology. He signed out AGAINST MEDICAL ADVICE. Janene Barrera PA-C Jul 23, 2016 5:11 pm
--- NOTE | 2016-07-23 19:25 | EKG ---
Date Performed: 07/22/2016 Time Performed: 16:26:30 PTAGE: 50 years EKG: Sinus rhythm NORMAL ECG NO PREVIOUS TRACING DOCTOR: Robert Escobar Interpretating Date/Time 07/23/2016 19:23:35
[2016-07-24 10:41] LABS: HEMOGLOBIN A1b 1.3 %; HEMOGLOBIN Ao 75.4 %; HEMOGLOBIN F 1.7 %; HEMOGLOBIN LA1C 3.3 %; HEMOGLOBIN P3 5.3 %
== END 2016-07-23 12:37 | disposition home or self-care (01) ==
LOC: NEPC 15:31 → NEDA 07-23 00:22 → NEPHCDU 07-23 01:17
PROVIDERS: ADMIT Internal Medicine; ATTEND Internal Medicine
DX: R53.1 Weakness (principal); R20.0 Anesthesia of skin; R93.0 Abnormal findings on diagnostic imaging of skull and head, not elsewhere classified; I13.0 Hypertensive heart and chronic kidney disease with heart failure and stage 1 through stage 4 chronic kidney disease, or unspecified chronic kidney disease; I50.9 Heart failure, unspecified; N18.9 Chronic kidney disease, unspecified; E11.22 Type 2 diabetes mellitus with diabetic chronic kidney disease; E11.42 Type 2 diabetes mellitus with diabetic polyneuropathy; J44.9 Chronic obstructive pulmonary disease, unspecified; I25.10 Atherosclerotic heart disease of native coronary artery without angina pectoris; J96.10 Chronic respiratory failure, unspecified whether with hypoxia or hypercapnia; Z86.73 Personal history of transient ischemic attack (TIA), and cerebral infarction without residual deficits; Z95.5 Presence of coronary angioplasty implant and graft; Z79.82 Long term (current) use of aspirin; Z79.4 Long term (current) use of insulin
CPT/HCPCS: 70450; 70551; 71010; 80053; 80061; 81001; 82550; 82552; 82948; 83036; 83735; 84484; 85025; 85610; 85730; 93005; 96374; 99285; G0378; J1815; J2060; J7030

== ENCOUNTER 2017-09-08 09:53 | Emergency (ER) | payer MEDICAID ==
[~2017-09-08 09:53] MED LIST: ASPI-516 CHEW; BUTA1CAP7 PO; CARV25TA PO; CYAN1TAB24 PO; D32000TA PO; FISH1000 PO; FOLI1TAB4 PO; FURO20TA PO; GABA100C4 PO; GLIM4TAB PO; HYDR10TA23 PO; INSU100V SQ; INSU1INJ5 SQ; LANS15CA PO; LORA10TA PO; MULT1TAB85 PO; PRAS10TA PO; UMEC1AER INH; VENTAER INH; ZOCO20TA PO
[2017-09-08 09:56] VITALS: BP 134/62; PULSE 70; RESP 20; TEMP 98.3; O2SAT 100
--- NOTE | 2017-09-08 10:13 | PD ---
HPI Chief Complaint: Injury Time Seen by Provider: 10:09 Travel History International Travel<30 days: No Contact w/Intl Traveler<30days: No Traveled to known affect area: No History of Present Illness HPI 51-year-old male with history of peripheral neuropathy with a foot drop presents emergency department for evaluation of his left great toe. Says that he stubbed his toe about 1 month ago and did not think this was a problem however, he stubbed his toe again today and decided to come in for evaluation for concern about his toenail. Patient denies any pain. He was able to control the bleeding prior to arrival. Denies fevers or chills. Denies a fall or head trauma. Denies loss of consciousness. PFSH Past Medical History Blood Disorders: No Heart Rhythm Problems: No Cancer: No Cardiovascular Problems: Yes Chest Pain: No Congestive Heart Failure: Yes COPD: Yes Cerebrovascular Accident: Yes Diabetes: Yes Diminished Hearing: No Endocrine: Yes Genitourinary: No Immune Disorder: No Musculoskeletal: Yes (LEFT HIP AND LOWER BACK PROBLEMS) Neurologic: Yes (HX OF TIA/CVA) Psychiatric: No Reproductive: No Respiratory: Yes Thyroid Disease: No Past Surgical History Body Medical Devices: ILEAC ARTERY/CARDIAC STENTS Social History Alcohol Use: No Tobacco Use: No Substance Use: No Allergies-Medications (Allergen,Severity, Reaction): Coded Allergies: No Known Allergies (Verified Adverse Reaction, Unknown, 09/08/17) Reported Meds & Prescriptions Reported Meds & Active Scripts Active Keflex (Cephalexin) 500 Mg Cap 500 Mg PO Q8H 7 Days Reported Claritin (Loratadine) 10 Mg Cap 10 Mg PO DAILY Tamsulosin (Tamsulosin HCl) 0.4 Mg Cap 0.4 Mg HS Citalopram (Citalopram Hydrobromide) 10 Mg Tab 10 Mg PO DAILY Glimepiride 4 Mg Tab 4 Mg PO BIDAC Furosemide 20 Mg Tab 20 Mg PO BID Carvedilol 25 Mg Tab 25 Mg PO BID Gabapentin 100 Mg Cap 200 Mg PO BID Zocor (Simvastatin) 20 Mg Tab 20 Mg PO HS Lansoprazole 15 Mg Capdr 15 Mg PO DAILY D3 (Cholecalciferol) 2,000 Unit Tab 2,000 Tab PO DAILY Aspirin 81 Mg Chew 81 Mg CHEW DAILY Fish Oil (Logan-3 Fatty Acids) 1,000 Mg Cap 2,000 Mg PO DAILY Ventolin Hfa 18 GM Inh (Albuterol Sulfate) 90 Mcg/Act Aer 1 Puff INH Q4H PRN Levemir Flextouch Pen Inj (Insulin Detemir) 300 unit/3 ML Pen 50 Units SQ HS Review of Systems Except as stated in HPI: all other systems reviewed are Neg Physical Exam Narrative GENERAL: Well-nourished, well-developed patient, in NAD SKIN: Focused skin assessment warm/dry. No rashes or lesions. Left great toe-full range of motion without crepitus or deformities. Proximal nailbed appears partially avulsed with extension of laceration in the lateral toe. Bleeding controlled. No tenderness to palpation. HEAD: Normocephalic. Atraumatic. EYES: No scleral icterus. No injection or drainage. THROAT: No pharyngeal injection, exudates, or tonsillar hypertrophy. Airway is patent. NECK: Supple, trachea midline. No JVD or lymphadenopathy. No meningismus. CARDIOVASCULAR: Regular rate and rhythm without murmurs, gallops, or rubs. RESPIRATORY: Breath sounds equal bilaterally. No accessory muscle use. No wheezes, rales, or rhonchi MUSCULOSKELETAL: No cyanosis, or edema. BACK: Nontender without obvious deformity. No CVA tenderness. Data Data Last Documented VS Vital Signs Date Time Temp Pulse Resp B/P (MAP) Pulse Ox O2 Delivery O2 Flow Rate FiO2 09/08/17 10:15 Room Air 09/08/17 09:56 98.3 70 20 134/62 (86) 100 Orders Orders Foot, Limited (2vws) (09/08/17 ) Support Splint (09/08/17 11:04) Ed Discharge Order (09/08/17 11:06) MDM Medical Decision Making Medical Screen Exam Complete: Yes Emergency Medical Condition: Yes Differential Diagnosis Right great toe fracture, nail avulsion, laceration Narrative Course 51-year-old male presents emergency department for evaluation of his left great toe after tripping over a rug this morning. He dies falling. He has a history of peripheral neuropathy and a foot drop and has stubbed his toe previously. He denies pain because of his history of neuropathy. Because of this, ordered x -ray to rule out fracture. There is no obvious fracture in the location of the laceration injury. There was a questionable fracture of the tuft however, this area is fully intact skin fajardo. Laceration repair completed after thoroughly irrigating and soaking and chlorhexidine and warm water. It is possible that patient has tendon injury however, laceration did not seem to extend into the tendon area. Patient is normally unable to extend his big toe so I was unable to assess this fully. Patient is discharged with Keflex. Patient is diabetic and has a high risk for infection. He is strongly advised to follow-up with a instructor looping for further evaluation and treatment. He is also advised to follow-up with his primary care physician. Wound care advised. Postop shoe to decrease significant range of motion of the toe allow for optimal healing of the avulsion/laceration. Procedures Procedure Narrative LACERATION LOCATION: Left great toe LENGTH: 1 and half centimeters NUMBER OF STITCHES/CARLIE: 5 REPAIR: The area of the laceration was prepped with Betadine and sterilely draped. A digital block was performed with 1% lidocaine without epinephrine the wound was copiously irrigated and explored without evidence of foreign body. Questionable tendon injury. Previous neurovascular compromise. injury. The wound was closed using 3 4-0 Prolene, 2 5-0 Prolene. This was a single layer repair. A sterile dressing was applied. The patient was advised to keep the dressing clean and dry. Patient tolerated the procedure well. Diagnosis Primary Impression: Toe laceration Qualified Codes: S91.212A - Laceration without foreign body of left great toe with damage to nail, initial encounter Referrals: Environmental Technology Professor Primary Care Physician Patient Instructions: Care For Your Stitches (ED), General Instructions Additional Instructions: Follow up with your primary care physician within 2-3 days. Keep area clean and dry for 24 hours. After 24 hours, you may bathe as normal but dry the area thoroughly. You may use [id number] triple antibiotic ointments for your injury daily. Change dressings daily. If bleeding starts, apply pressure and elevate the area. If you developed increased redness, swelling, or pain return to the emergency department as this could be a sign of infection. Keep the post op shoe on when walking to avoid further injury. Scripts Cephalexin (Keflex) 500 Mg Cap 500 MG PO Q8H for Infection for 7 Days, #21 CAP 0 Refills Prov: Bhakti Jain MD 09/08/17 Disposition: 01 DISCHARGE HOME Condition: Stable Janie Johnson Sep 08, 2017 10:13
[2017-09-08] MEDS ORDERED: TAMS0.4C4 (10:15)
[2017-09-08] MEDS ORDERED: CLAR10CA3 PO (10:15)
[2017-09-08] MEDS ORDERED: CITA10TA4 PO (10:15)
--- NOTE | 2017-09-08 10:33 | RADRPT ---
EXAM DATE: 09/08/2017 10:19 AM EDT AGE/SEX: 51 years / Male INDICATIONS: Trauma. CLINICAL DATA: This is the patient's initial encounter. Patient reports that signs and symptoms have been present for 1 day and indicates a pain score of 0/10. MEDICAL/SURGICAL HISTORY: Diabetes. Neuropathy. None. COMPARISON: No prior exams available for comparison. FINDINGS: Degenerative changes in the tarsals with moderate pes planus deformity and minimal vascular calcifica tions. Plantar spurring is evident. Possible nondisplaced fracture distal tuft great toe. CONCLUSION: Degenerative changes, possible fracture distal tuft great toe Electronically signed by: Satish Jesus MD 09/08/2017 10:32 AM EDT
[2017-09-08] MEDS ORDERED: CEPH-460 PO (11:05)
== END 2017-09-08 11:29 | disposition home or self-care (01) ==
LOC: PHEFT 09:53
DX: S91.212A Laceration without foreign body of left great toe with damage to nail, initial encounter (principal); W22.8XXA Striking against or struck by other objects, initial encounter; I50.9 Heart failure, unspecified; J44.9 Chronic obstructive pulmonary disease, unspecified; M21.379 Foot drop, unspecified foot; G62.9 Polyneuropathy, unspecified; E11.9 Type 2 diabetes mellitus without complications; Z95.5 Presence of coronary angioplasty implant and graft; Z86.73 Personal history of transient ischemic attack (TIA), and cerebral infarction without residual deficits; Z79.899 Other long term (current) drug therapy
CPT/HCPCS: 12001; 73620; 99283; L3260